=== PATIENT | male | born 1990 | race Two or more races ===

== ENCOUNTER 2022-09-26 09:55 | Outpatient (CLI) | payer OTHER | END 2022-09-26 10:09 | disposition home or self-care (01) | LOC: MRI 09:55 | PROVIDERS: ATTEND Orthopaedic Surgery | DX: M25.561 Pain in right knee (principal); M25.562 Pain in left knee; S83.200A Bucket-handle tear of unspecified meniscus, current injury, right knee, initial encounter | CPT/HCPCS: 73721 ==